=== PATIENT | female | born 1975 | race Caucasian/White ===

== ENCOUNTER → 2018-04-17 10:01 | Outpatient (CLI) | payer OTHER, SELFPAY ==
[2018-04-17 12:00] LABS: Appearance Urine UA CLOUDY; Bilirubin Urine UA 1+ (NEGATIVE); Color Urine UA YELLOW; Glucose Urine UA NEGATIVE (Negative); Ketones Urine UA 2+ (NEGATIVE); Leukocyte Esterase Urine UA NEGATIVE (NEGATIVE); Nitrite Urine UA NEGATIVE (Negative); Occult Blood Urine UA 3+ (Negative); Protein Urine UA TRACE (Negative); Specific Gravity Urine UA 1.025 (1.000-1.035); Urobilinogen Urine UA 0.2 E.U./dL (0.2); pH Urine UA 5.5 (4.5-8.0)
[2018-04-17 12:10] LABS: Alanine Aminotransferase 38 IU/L (9-52); Albumin 4.7 g/dL (3.5-5.0); Albumin Globulin Ratio 1.4 (1.0-2.8); Alkaline Phosphatase 117 U/L (38-126); Aspartate Aminotransferase 31 IU/L (14-36); BUN Creatinine Ratio 22.5 (6-22); Bilirubin Total 0.4 mg/dL (0.2-1.3); Blood Urea Nitrogen 18 mg/dL (7-17); Calcium 9.4 mg/dL (8.4-10.2); Carbon Dioxide 22 mmol/L (22-32); Chloride 104 mmol/L (98-107); Estimated Glomerular Filt Rate > 60.0 mL/min (>60); Globulin 3.4 g/dL (1.7-4.1); Glucose 95 mg/dL (70-100); HEMOLYSIS < 15 (0-50); Potassium 4.2 mmol/L (3.4-5.1); Sodium 139 mmol/L (137-145); Total Protein 8.1 g/dL (6.3-8.2)
[2018-04-17 12:47] LABS: RBC Urine 1-5/HPF (0-5/HPF); WBC Urine 5-10/HPF (0-5/HPF)
[2018-04-17 12:48] LABS: Amorphous Sediment Urine 1+; Bacteria Urine Moderate (10-30); Granular Casts Urine 1-5/LPF; Ictotest Urine Negative (Negative); Mucus Urine 1+ (Negative); Squamous Epithelial Cell Urine 1-5 /HPF
[2018-04-17 12:49] LABS: Culture Indicated Urine Specimen Cultured
== END ==
PROVIDERS: Family Provider Family Medicine; PCP Family Medicine; Visit Provider Internal Medicine
DX: R63.1 Polydipsia (principal)
CPT/HCPCS: 36415; 80053; 81001; 87086

== ENCOUNTER → 2019-11-24 11:18 | Outpatient (CLI) | payer OTHER, SELFPAY ==
[2019-11-25 20:07] LABS: COVID19 Sendout Not Detected (Not Detect)
== END ==
PROVIDERS: Family Provider Family Medicine; PCP Family Medicine; Visit Provider Physician Assistant
DX: Z11.59 Encounter for screening for other viral diseases (principal)
CPT/HCPCS: 87635

== ENCOUNTER 2019-11-27 09:01 | Day surgery (SDC) | payer OTHER, SELFPAY ==
[2019-11-21 13:22] VITALS: BMI 35.4
[2019-11-27] VITALS (15 sets, daily range): BP systolic 112–142; BP diastolic 65–83; PULSE 88–106; RESP 12–21; TEMP 35.7–37.1; O2SAT 94–98; BMI 36.0
--- NOTE | 2019-11-27 | PATH_ITS ---
[facility] Accession Number: [id number] . 01 Material submitted: . uterus - UTERUS AND BILATERAL FALLOPIAN TUBES . 01 Clinical history: . LSCH/BSO LYSIS OF ADHESIONS *OPB* . 02 Diagnosis: Uterus and Bilateral Fallopian Tubes, Laparoscopic Supracervical Hysterectomy and Bilateral Salpingo-oophorectomy (Weight 60 grams, Morecellated Uterus Specimen): Weakly proliferative endometrium; negative for glandular hyperplasia, cytologic atypia, or malignancy. Pseudodecidualized stromal change present, suggestive of possible exogenous hormone effect. Myometrium with a small leiomyoma (0.4 cm) and with involvement by adenomyosis. Uterine serosa with no significant histomorphologic abnormality. Detached fallopian tube with no significant histomorphologic abnormality. Attached fallopian tube with benign paratubal cysts (up to 4 mm in greatest dimension) and otherwise, no significant histomorphologic abnormality. [facility] 12/01/2019 1725 Local . 02 Electronically signed: . Sophia Hernandez MD, Pathologist NPI- [id number] . 01 Gross description: . Received in formalin, labeled with the patient's name, MRN and uterus and bilateral fallopian tubes, is a 60 gram, 7.8 x 6.5 x 2.9 cm aggregate of morcellated uterus with a 4.6 cm in length by 0.5 cm in diameter separate within the container fimbriated fallopian tube and a 6.0 cm in length by 0.6 cm in diameter attached fimbriated fallopian tube. The identifiable serosal surface of the uterus is pink-cleveland and smooth. The grossly identifiable endometrium is pink-cleveland with focal areas of hemorrhage. The endometrial thickness measures 0.2 cm and the myometrial thickness measures 1.7 cm. Within the myometrium is a 0.4 cm in greatest dimension, cleveland-white whorled nodule resembling a leiomyoma. The external surface of the fallopian tubes are pink-purple and smooth. The fallopian tubes are serially sectioned to reveal a pink-cleveland cut surface with stellate lumina. No cervix is identified. Ribbon Blocker sections are submitted as follows: . A1: full-thickness section of uterine wall. A2: call center support representative sections of endometrium. A3: entire possible leiomyoma, bisected, in relationship to serosa. A4: call center support representative sections of fallopian tube separate within the container and entire trisected fimbriated end. A5: call center support representative sections of attached fallopian tube and entire serially sectioned fimbriated end. (SD/[id number]) /MRV 11/28/2019 1026 Local . 02 Pathologist provided ICD-10: N93.9, N94.6 . 02 CPT . 185666 Performed at: 01 [facility] [address] [place] [address], [place], [place] [id number] MD Brian Montalvo MD Phone: [phone] Performed at: 02 [facility] [address] [place] [id number] MD Angie Bridges MD Phone: [phone]
[2019-11-27] MEDS: LACTATED RINGERS 1,000 ML 42 ML IV ×2 (09:38→12:11)
[2019-11-27] MEDS: APREPITANT 40 MG CAPSULE PO (10:37)
--- NOTE | 2019-11-27 10:38 | PM.PREOP ---
Pre-operative Note COVID-19 COVID-19 status: Negative Result date/Date tested (Pos, Neg/Pending): 11/24/19 Interval Note History & Physical reviewed/Exam performed by Physician: Yes Changes to H&P: No H&P completed within 30 days and has changed as indicated here:: 11/24/19
[2019-11-27] MEDS: MIDAZOLAM 2 MG/2 ML VIAL IV (10:41)
--- NOTE | 2019-11-27 10:46 | SUR.PREOP ---
pt taken directly into the OR after IV versed given. pt alert and talking to OR nurse at time of departure. pt in stable condition, vss.
[2019-11-27] MEDS: CEFAZOLIN 2 GM/100 ML FROZ.PIGGY IV (10:50)
[2019-11-27] MEDS: ROPIVACAINE 0.2% PF 2 MG/ML 10ML AMP 10 ML INJ (11:38)
[2019-11-27] MEDS: BUPIVACAINE 0.5% W/ EPI (PF) 30 ML VIAL INJ (11:39)
--- NOTE | 2019-11-27 11:51 | SUR.OPER ---
Lithotomy on padded OR bed. [place] Pad Positioner under torso. Head on pillow, arms padded and tucked at sides. Legs secured in padded yellow fins stirrups.
[2019-11-27] MEDS: LACTATED RINGERS 1,000 ML 100 ML IV ×2 (12:10→15:43)
--- NOTE | 2019-11-27 12:29 | PM.GYNOP.1 ---
Operative Date/Time/Diagnoses Date of procedure: 11/27/19 Time of procedure: 12:29 Pre-op diagnosis: Pelvic pain IUD in place Dysmenorrhea Abnormal uterine bleeding Post-op diagnosis: same Procedure & Clinicians Procedure: Procedures Operation Date: 11/27/19 10:45 Actual Procedures Side Surgeon p Laparoscopic Supracervical Hysterectomy W/ bilateral salingectomy, Remove IUD Amina Minor MD Surgeon: Amina Minor Quality Improvement Consultant: [place] Rodríguez Anesthesia Type: General Operative Notes Findings: Ten week size adenomyotic uterus Normal tubes and ovaries Normal Gallbladder and liver Normal appendix Normal ovaries No evidence of endometriosis Closure Type: primary Specimen(s): left tube, right tube and uterus Applied: catheter (To continous drainage) Estimated blood loss (mL): 50 Blood products transfused: none Procedure in detail: The patient was taken to the operating room where she was placed in the dorsal supine position. After adequate general endotracheal anesthesia was achieved, she was placed in the dorsal lithotomy position, and prepped and draped in the usual sterile fashion. A timeout was performed. A bivalve speculum was placed into the vagina and the anterior lip of the cervix grasped with a single-tooth tenaculum. The cervical os was sequentially dilated until the ZUMI uterine manipulator could pass easily into the endometrial cavity. The single-tooth tenaculum was removed from the anterior lip of the cervix, and the bivalve speculum was removed from the vagina. Attention was then turned to the abdomen where 6 mL of half percent Marcaine with epinephrine were injected in the umbilical fold. A 5 mm incision was made. The Verhees needle was placed into the peritoneal cavity, and its placement confirmed by aspiration and drop test. The Verhees needle was removed. A 5 mm trocar was placed without difficulty. 2 other incisions were made midway between the pubic symphysis and umbilicus after 5 mL of half percent Marcaine with epinephrine were injected. These were 5 mm incisions. Two 5 mm trochars were placed under direct visualization. The right tube was grasped with an atraumatic grasper. Using the plasma kinetic with settings of 40 W the mesosalpinx was cauterized and cut all the way down to the cornua of the uterus. The cornua of the uterus was then grasped with an atraumatic grasper. The utero-ovarian ligaments were cauterized and cut. The round ligament and broad ligament was cauterized and cut with plasma kinetic. Hemostasis was achieved. The bladder flap was created using the plasma kinetic with cautery and cut residential across. The uterine arteries on the right side were extensively cauterized with plasma kinetic. All of this was repeated on the left side. The remainder of the bladder flap was created using the plasma kinetic, and the bladder taken down off the lower uterine segment and cervix. The Zumi uterine manipulator was removed from the uterus and a moistened sponge stick was placed into the vagina. Using the [place], the cervix was amputated from the uterus 2 cm above the uterosacral ligaments. There was a small amount of bleeding noted on the right edge of the cervix, and this was cauterized for hemostasis. 6 mL of half percent Marcaine with epinephrine were injected above the pubic symphysis. A 12 mm trocar was placed. An Endobag was placed through the suprapubic trocar and the uterus placed into the Endobag. The trocar was removed. The Pavel was placed into the endobag. The uterus was hand morcellated in approximately 4 pieces. The Endobag and Pavel were removed from the peritoneal cavity. The pelvis was copiously irrigated with warm normal saline. No bleeding was noted. 20 cc of 0.2% ropivacaine were placed over the pedicles. The instruments were removed from the abdomen. The CO2 was allowed to escape. The suprapubic incision was closed on the fascia with 0 Vicryl. All of the incisions were closed with 4-0 Biosyn in a subcuticular fashion. Steri-Strips, 2 x 2, and op site were placed. The moistened sponge stick was removed from the vagina. Sponge, lap, and instrument counts were correct x-2. The patient tolerated the procedure well, was taken to PACU in stable condition. Urine clear and 200cc. IVF's: 1000cc Complications: none Post-operative Condition: stable Disposition: PACU Plan for aftercare: To Acute Care after recovery
[2019-11-27] MEDS: fentaNYL 100 MCG/2 ML INJ IV (12:41)
[2019-11-27] MEDS: BENZOCAINE/MENTHOL 1 LOZ PKT 1 EACH PO ×3 (13:04→20:53)
[2019-11-27] MEDS: LORazepam 2 MG/ML INJ 0.25 MG IV (13:08)
--- NOTE | 2019-11-27 14:19 | PC.NURSE ---
Day Shift- During admission assessment questionnaire. Pt stated she had a history in December 2017 of Suicidal thoughts. None at this time. Openly talked about this with her Tommy at bedside, stated she has good family and friend support. Has a supportive therapist who sent goel to her room this admit and takes medications. Primary RN aware. pt also stated that for the past 3 weeks she has had loss of appetite eating once daily and her regular bowel movements are several times daily up to 6 times a day and varies in consistency.
[2019-11-27] MEDS: KETOROLAC 30 MG/ML VIAL IV (15:44)
[2019-11-27] MEDS: ACETAMINOPHEN 325 MG TABLET 650 MG PO (17:30)
[2019-11-27] MEDS: HYDROMORPHONE 1 MG INJ IV (20:49)
[2019-11-27] MEDS: ZOLPIDEM 5 MG TABLET PO (20:50)
[2019-11-27] MEDS: DOCUSATE 250 MG CAPSULE PO (20:50)
[2019-11-27] MEDS: BUSPIRONE 5 MG TABLET 10 MG PO (20:52)
[2019-11-27] MEDS: SERTRALINE 50 MG TABLET 150 MG PO (20:52)
[2019-11-28] MEDS: LACTATED RINGERS 1,000 ML 100 ML IV (00:07)
[2019-11-28] MEDS: KETOROLAC 30 MG/ML VIAL IV (03:33)
[2019-11-28 04:15] VITALS: BP 123/55; PULSE 90; RESP 16; TEMP 36.6; O2SAT 97
[2019-11-28] MEDS: PANTOPRAZOLE 20 MG TABLET PO (05:35)
[2019-11-28 05:44] LABS: Add Manual Diff / Slide Review NO; Basophils Absolute Auto 0 /uL (0-100); Basophils Percent Auto 0.3 % (0-2); Eosinophils Absolute Auto 0 /uL (0-450); Eosinophils Percent Auto 0.1 % (2-4); Hematocrit 36.4 % (36-46); Lymphocytes Absolute Auto 1600 /uL (1100-4500); Mean Corpuscular HGB Conc 32.9 % (30-36); Mean Corpuscular Hemoglobin 29.1 PG (26-34); Mean Corpuscular Volume 88.4 fL (80-100); Monocytes Absolute Auto 900 /uL (0-900); Monocytes Percent Auto 5.2 % (3-14); Neutrophils Absolute Auto 14000 /uL (1500-7000); Neutrophils Percent Auto 84.4 % (50-75); Platelet Count 284 X10^3/uL (150-400); Red Blood Cell Count 4.12 X10^6/uL (4.0-5.2); Red Cell Distribution Width 13.7 % (11.6-14.8); White Blood Cell Count 16.5 X10^3/uL (4.5-11.0)
[2019-11-28 08:00] VITALS: BP 113/58; PULSE 80; RESP 16; TEMP 36.3; O2SAT 97
[2019-11-28] MEDS: DOCUSATE 250 MG CAPSULE PO (08:10)
[2019-11-28] MEDS: BUSPIRONE 5 MG TABLET 10 MG PO (08:10)
--- NOTE | 2019-11-28 11:02 | DIET.PN ---
Dietary Progress Note Assessment: 44y F admitted after hysterectomy referred to nutrition r/t pain and bloating in abdomen leading to low POs and 1.5y hx of loose stools (2-6x/d c urgency). Pt reports being worked up by GI with no definitive results. Pt reports high stress levels for 1.5y. Pt was seen at [facility] in [place] for weight loss, they put her on ketogenic diet and she lost 15# in 2w which scared her so she stopped that program and has had diarrhea ever since. Pt reports loose stools between 11am-4pm and once per month she wakes up c BM urgency. Pt reports no food particles in BM, that it has been transformed, just loose. Pt takes Immodium but has to be careful because can cause her to get plugged up. Usual Day: 8oz coffee c 1 sweet n low and creamer B: Atkins Shake L: string cheese D: small serving chicken c pasta drinks 70oz water/d HT: 175.2cm WT: 110.6kg BMI: 36.0 Interventions: 1. Gave pt sample of Medtrition banana flakes which can help form stools without constipation. 2. Provided handout and education on foods which can aggravate diarrhea and gut soothing foods including recipes.
[2019-11-28] MEDS: ACETAMINOPHEN 325 MG TABLET 650 MG PO (11:14)
--- NOTE | 2019-11-28 11:35 | PC.NURSE ---
Patient just discharged to home. She was given tylenol for discomfort. Dressings to lower abdomen all cdi. Patient voiding well. Out to car with EXPORT TRAFFIC DEPARTMENT MANAGER and to drive her home.
--- NOTE | 2019-11-28 14:13 | CM.DPNOTE ---
DCP Note Reviewed chart to see patient is POD#1 from hysterectomy , BSO. Patient had shared w/RN that she had h/o struggle years ago w/suicidal ideation, according to notes, patient shared openly in front of her supportive spouse and explained she had a therapist she trusted for f/u. This DISTRICT CUSTOMS DIRECTOR offered patient visit to [facility] and Marine Driller Mica was headed in, Cindy states patient is doing very well and no DISTRICT CUSTOMS DIRECTOR visit needed at this time. Mica aware of MH complexities and felt well prepared to offer patient education and support, especially in the recovery from OB procedure. RAVINDRA Jay
--- NOTE | 2019-11-29 14:13 | PM.DS.1 ---
History of Present Illness History of Present Illness Date Patient Seen: 11/28/19 Time Patient Seen: 07:10 Chief complaint: LSCH/BSO LYSIS OF ADHESIONS *OPB* Narrative: Patient is a 44-year-old 0 with dysmenorrhea and pelvic pain who presented for a scheduled laparoscopic supracervical hysterectomy on November 27, 2019. She underwent the procedure without complication. Her catheter was removed on postop day # 0 due to discomfort. She has voided without catheter. She has ambulated, tolerated a diet, and has had her pain controlled with oral medications. Discharge Providers Provider Date of admission: 11/27/19 Discharge Date: 11/28/19 Primary care physician: Angie Gallardo MD Consults: 11/27/19 14:08 Consult to Dietitian, Adult Routine Comment: eating once daily Reason For Exam: pt has 3 weeks history of loss of appetite Discharge provider: Amina Minor MD Summary Hospital Course Discharge Diagnosis: Status post laparoscopic supracervical hysterectomy with bilateral salpingectomy Dysmenorrhea Pelvic pain Hospital Course: Patient presented on November 27, 2019 for a scheduled laparoscopic supracervical hysterectomy with bilateral salpingectomy. Share underwent this procedure without complication. She had her catheter removed on postop day # 0. She voided without the catheter. On postop day # 1 she was tolerating a diet, ambulating independently, and her pain was managed with oral medications. She is discharged home on postop day # 1. Status at Discharge Cognitive/behavioral status at discharge: oriented Functional status at discharge: independent ambulation Overall status at discharge: patient is progressing back to baseline Time Spent with Patient Time spent: Less than 30 minutes Exam Vital Signs (past 8 hours): Oxygen Delivery Method Room Air Oxygen Flow Rate 0 Narrative Exam Narrative: Generally: Patient is sitting up in bed, no acute distress Lungs: Clear to auscultation bilaterally Cardiovascular: Regular rate and rhythm Abdomen: Soft, good bowel sounds. Incision: Clean, dry and intact with op sites Extremities: Negative barber's. Objective Labs Result Diagrams: 11/28/19 05:21 Discharge Assessment & Plan Assessment and Plan Assessment: 44-year-old postop day # 1 status post laparoscopic supracervical hysterectomy with bilateral salpingectomy, doing very well Plan of Treatment: Discharge to home Follow-up in 2 weeks for a tele Health postop visit Prescription for Dilaudid sent in to the pharmacy Patient to call with fever, chills, redness or drainage around the incisions, or bleeding vaginally more than spotting to light Discharge Plan Discharge Plan Patient Disposition: Home Discharge comment: Call with fever, chills, redness or drainage around incisions or bleeding vaginally more than spotty to light Ibuprofen 600mg every 6 hours Discharge Med Rec/Prescriptions Prescriptions: New hydromorphone [Dilaudid] 2 mg tablet 2 mg PO Q4-6H PRN (Reason: pain) Qty: 20 RF: 0 phenazopyridine [Pyridium] 100 mg tablet 100 mg PO TID PRN (Reason: pain) Qty: 10 RF: 0 Continued zolpidem 5 mg tablet 5 mg PO BEDTIME PRN (Reason: Sleep) RF: 0 cholecalciferol (vitamin D3) 1,000 unit capsule 1,000 unit PO DAILY RF: 0 alprazolam 0.5 mg tablet 0.25 mg PO BID-TID PRN (Reason: anxiety) Qty: 30 RF: 0 omeprazole 20 mg capsule,delayed release(DR/EC) 20 mg PO DAILY RF: 0 buspirone 10 mg tablet 10 mg PO BID RF: 0 magnesium gluconate [Mag-G] 27 mg magnesium (500 mg) tablet 27 mg PO DAILY RF: 0 sertraline 100 mg tablet 150 mg PO BEDTIME RF: 0 Follow up/Referrals: Amina Minor MD [Physician] - 12/10/19 4:30 pm Discharge Orders: Discharge (Order); Ordered 11/28/19 Ordered By: Amina Minor Provider Discharge Instructions Diet: Regular Activity: No intercourse Walking only until post op visit Skin/Wound/Dressing Care Report to your healthcare provider any signs of infection, such as:: chills, fever, increased pain, unusual drainage and unusual redness Dressing: Remove outer plastic dressings and guaze after first shower Leave steri strips in place Visit Report/Discharge Packet Instructions: DI for Hysterectomy, DI for Laparoscopy, How to Prevent Falls, DI for Postoperative Pain, DI for Prescription Opioid Use, Hydromorphone, Phenazopyridine Stand Alone Forms: Surgery Discharge Discharge Data Primary Care Provider: Angie Gallardo Attending Provider: Amina Minor Discharges patient from system. Discharge Date/Time: 11/28/19 11:38 Quality VTE Deep Vein Thrombosis/Pulmonary Embolism Present on Admission: No
== END 2019-11-28 11:38 | disposition home or self-care (01) ==
LOC: OR 09:07 → AC 09:08
PROVIDERS: Family Provider Family Medicine; PCP Family Medicine; Referring Provider Family Medicine; Visit Provider Obstetrics & Gynecology
PROC: 0UT94ZL Resection of Uterus, Supracervical, Percutaneous Endoscopic Approach (ICD-10-PCS; CPT 58542; principal; 2019-11-27 10:45)
DX: N80.0 Endometriosis of uterus (principal); Z30.432 Encounter for removal of intrauterine contraceptive device; E66.9 Obesity, unspecified; K21.9 Gastro-esophageal reflux disease without esophagitis; F32.9 Major depressive disorder, single episode, unspecified; F41.9 Anxiety disorder, unspecified; N83.8 Other noninflammatory disorders of ovary, fallopian tube and broad ligament
CPT/HCPCS: 58542; 36415; 85025; J0690; J1100; J1170; J1885; J2060; J2250; J2405; J2704; J2795; J3010; J8501